=== PATIENT | female | born 2005 | race African-American/Black ===

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

== ENCOUNTER 2024-02-13 15:58 | Emergency (ER) | payer OTHER ==
[~2024-02-13] VITALS: Ht 154.9 cm; Wt 53.0 kg
[~2024-02-13 15:58] MED LIST changes: +ALBU6.7H3 INH; -ALBU6.7H9 INH
[2024-02-13 16:01] VITALS: O2SAT 100
[2024-02-13 16:29] LABS: CLARITY URINE TURBID (CLEAR); COLOR URINE RED (YELLOW); GLUCOSE URINE NEGATIVE (NEGATIVE); KETONES URINE NEGATIVE (NEGATIVE); LEUKOCYTE ESTERASE URINE 3+ (NEGATIVE); NITRITE URINE POSITIVE (NEGATIVE); OCCULT BLOOD URINE 2+ (NEGATIVE); PROTEIN URINE 2+ (NEGATIVE); SPECIFIC GRAVITY URINE 1.024 (1.005-1.030); UROBILINOGEN URINE 0.2 E.U./dL (0.2-1.0)
[2024-02-13 16:59] LABS: BACTERIA URINE 1+; RBC URINE TNTC /hpf (0-2); SQUAMOUS EPITHELIAL CELL URINE 1+ /lpf (RARE/1+); WBC URINE TNTC /hpf (0-2)
[2024-02-13] MEDS ORDERED: CEFP100T8 MT (17:09)
[2024-02-13 17:24] VITALS: BP 100/82; PULSE 66; RESP 18; TEMP 37.00296; O2SAT 100
== END 2024-02-13 17:25 | disposition home or self-care (01) ==
LOC: ER 15:58
DX: N12 Tubulo-interstitial nephritis, not specified as acute or chronic (principal); J45.909 Unspecified asthma, uncomplicated
CPT/HCPCS: 81003; 99283

== ENCOUNTER 2024-03-25 18:28 | Emergency (ER) | payer OTHER ==
[~2024-03-25] VITALS: Ht 154.9 cm; Wt 54.9 kg
[~2024-03-25 18:28] MED LIST changes: +CEFP100T8 MT
[2024-03-25 18:35] VITALS: O2SAT 100
[2024-03-25 18:58] LABS: CLARITY URINE TURBID (CLEAR); COLOR URINE ORANGE (YELLOW); GLUCOSE URINE NEGATIVE (NEGATIVE); KETONES URINE 3+ (NEGATIVE); LEUKOCYTE ESTERASE URINE 3+ (NEGATIVE); NITRITE URINE NEGATIVE (NEGATIVE); OCCULT BLOOD URINE 3+ (NEGATIVE); PH URINE 6.5 (4.5-8.0); PROTEIN URINE 4+ (NEGATIVE); SPECIFIC GRAVITY URINE 1.027 (1.005-1.030)
[2024-03-25 19:19] LABS: BACTERIA URINE 1+; RBC URINE 15-25 /hpf (0-2); SQUAMOUS EPITHELIAL CELL URINE 1+ /lpf (RARE/1+)
[2024-03-25] MEDS ORDERED: CEPH500C2 MT (21:23)
[2024-03-25] MEDS ORDERED: ACET-2708 MT (21:23)
[2024-03-25] MEDS ORDERED: TRIA15OI8 TP (21:29)
[2024-03-25] MEDS: CEPHALEXIN 250MG CAPSULE PO ONE (21:31)
[2024-03-25] MEDS: ACETAMINOPHEN 325MG TABLET PO ONE (21:31)
[2024-03-25 21:39] VITALS: BP 109/68; PULSE 88; RESP 16; TEMP 37.05852; O2SAT 100
== END 2024-03-25 21:42 | disposition home or self-care (01) ==
LOC: ER 18:28
DX: N39.0 Urinary tract infection, site not specified (principal); L30.9 Dermatitis, unspecified; J45.909 Unspecified asthma, uncomplicated; Z76.0 Encounter for issue of repeat prescription
CPT/HCPCS: 81003; 81025; 99283